=== PATIENT | male | born 1945 | race Caucasian/White ===

== ENCOUNTER 2021-09-16 10:14 | Day surgery (SDC) | payer OTHER ==
[~2021-09-16] VITALS: Ht 172.7 cm; Wt 79.4 kg
[2021-09-16 10:32] VITALS: BP 130/85; PULSE 84; TEMP 97.9
[2021-09-16] MEDS ORDERED: REFRESH LIQUIGE15 M1 OP (10:42)
[2021-09-16] MEDS ORDERED: PROAIR HFA0.09 MG/AC IH (10:42)
[2021-09-16] MEDS ORDERED: TEMOVATE0.05% TP (10:43)
[2021-09-16] MEDS ORDERED: HYGROTON 2525 MG/TAB PO (10:43)
[2021-09-16] MEDS ORDERED: FLEXERIL 1010 MG/TAB PO (10:44)
[2021-09-16] MEDS ORDERED: RESTASIS MULTI5.5 ML OP (10:45)
[2021-09-16] MEDS ORDERED: LODINE200 MG PO (10:46)
[2021-09-16] MEDS ORDERED: RT ADVAIR 228 DISKUS IH (10:46)
[2021-09-16] MEDS ORDERED: NEURONTIN300 MG/CAP PO (10:47)
[2021-09-16] MEDS ORDERED: MAG-OX 400400 MG/TAB PO (10:47)
[2021-09-16] MEDS ORDERED: GLUCOPHAGE1000 MG PO (10:47)
[2021-09-16] MEDS ORDERED: ICAPS AREDS2 S1 EACH PO (10:48)
[2021-09-16] MEDS ORDERED: PROTOPIC0.1% TP (10:49)
[2021-09-16] MEDS ORDERED: CRESTOR20 MG PO (10:49)
[2021-09-16 11:44] VITALS: BP 112/70; PULSE 80; TEMP 97
--- NOTE | 2021-09-16 11:44 | NUR ---
Pt arrived from procedure and was settled by Alla LEYVA. Written report given to Laurie LEYVA. Per report: pt oriented to room and call snow.
[2021-09-16 12:00] VITALS: BP 124/78; PULSE 74
--- NOTE | 2021-09-16 12:00 | NUR ---
Vss. Pt is tolerating his toast and water. Call snow remains within reach.
--- NOTE | 2021-09-16 12:21 | NUR ---
VSS. IV discontinued. Catheter tip intact. Pressure bandage applied. No redness or swelling notd. DC instructions and educational material reviewed with the PT and , who verbalized understanding and signed the related paperwork. Pt denied needing assistance changing into personal clothes.
[2021-09-16 12:24] VITALS: BP 133/86; PULSE 77
--- NOTE | 2021-09-16 12:25 | NUR ---
Pt dismissed from endo via wheelchair to the pt entrence and was transferred into the care of his , who is present to drive and has DC packet and pt personal belongings.
== END 2021-09-16 12:26 | disposition home or self-care (01) ==
LOC: SDCO 10:14
DX: K21.00 Gastro-esophageal reflux disease with esophagitis, without bleeding (principal); K29.50 Unspecified chronic gastritis without bleeding; K25.7 Chronic gastric ulcer without hemorrhage or perforation; K22.89 Other specified disease of esophagus; R63.4 Abnormal weight loss; I10 Essential (primary) hypertension; J44.9 Chronic obstructive pulmonary disease, unspecified; Z87.891 Personal history of nicotine dependence; Z79.899 Other long term (current) drug therapy
CPT/HCPCS: J2704; J7120